=== PATIENT | female | born 1995 | race Hispanic/Latino ===

== ENCOUNTER 2019-02-25 11:20 | Emergency (ER) | payer BC ==
--- NOTE | 2019-02-25 11:36 | Emergency Department Report ---
Blank Doc - Documentation Documentation: 23-year-old female that presents with continues nosebleeds and syncopal episode today. This initial assessment/diagnostic orders/clinical plan/treatment(s) is/are subject to change based on patient's health status, clinical progression and re- assessment by fellow clinical providers in the ED. Further treatment and workup at subsequent clinical providers discretion. Patient/guardians urged not to elope from the ED as their condition may be serious if not clinically assessed and managed. Initial orders include: 1- Patient sent to [facility] for further evaluation and treatment 2- labs 3- UA 4- CT head 5- EKG
[2019-02-25 13:09] LABS: Basophils % (Auto) 0.6 % (0.0-1.8); Eosinophils # (Auto) 0.1 K/mm3 (0.0-0.4); Hematocrit 38.9 % (30.3-42.9); Lymphocytes # (Auto) 1.7 K/mm3 (1.2-5.4); Mean Corpuscular HGB Conc 33 % (30-34); Mean Corpuscular Volume 96 fl (79-97); Monocytes # (Auto) 0.4 K/mm3 (0.0-0.8); Monocytes % (Auto) 6.5 % (0.0-7.3); Platelet Count 299 K/mm3 (140-440); Red Blood Count 4.07 M/mm3 (3.65-5.03); Red Cell Distribution Width 12.4 % (13.2-15.2)
[2019-02-25 13:21] LABS: INR 1.02 (0.87-1.13)
[2019-02-25 13:22] LABS: Partial Thromboplastin Time 33.3 Sec. (24.2-36.6)
[2019-02-25 13:38] LABS: Alanine Aminotransferase 13 units/L (7-56); BUN/Creatinine Ratio 18; Blood Urea Nitrogen 11 mg/dL (7-17); Calcium 9.6 mg/dL (8.4-10.2); Hemolysis Index 6
[2019-02-25 14:22] LABS: Bilirubin,Urine NEG (Negative); Blood,Urine SM (Negative); Color,Urine Yellow (Yellow); Mucus,Urine FEW /HPF; Protein,Urine <15 mg/dL mg/dL (Negative); Urobilinogen,Urine < 2.0 mg/dL (<2.0); WBC,Urine < 1.0 /HPF (0.0-6.0)
--- NOTE | 2019-02-25 14:53 | Cat Scan Report ---
CT head/brain wo con INDICATION / CLINICAL INFORMATION: 23 years Female; syncope. TECHNIQUE: Routine CT head without contrast. All CT scans at this location are performed using CT dos e reduction for ALARA by means of automated exposure control. COMPARISON: None. FINDINGS: BRAIN / INTRACRANIAL CONTENTS: The brain demonstrate appropriate attenuation. 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 This finding. To flatten th e superior tectum on the sagittal reconstructed images. However, the ventricular system is within nor mal limits in size and configuration without evidence of hydrocephalus.. There is no CT evidence of a cute intracranial hemorrhage or significant mass effect. ORBITS: No significant abnormality of visualized orbits. SINUSES / MASTOIDS: There is mild focal opacification along the posterior right ethmoid air cells. CRANIOCERVICAL JUNCTION: No significant abnormality. ADDITIONAL FINDINGS: None. IMPRESSION: 1. 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 Otherwise, the CT of the head is unremarkable without evidence of acute intracranial process. Signer Name: Sigifredo Collazo MD Signed: 02/25/2019 2:48 PM Workstation Name: [id number]
--- NOTE | 2019-02-25 15:11 | Emergency Department Report ---
ED General Adult HPI - General Chief complaint: Syncope Stated complaint: FELL AT WORK/PASSED OUT NOSE BLEED Time Seen by Provider: 02/25/19 11:33 Source: patient Mode of arrival: Ambulatory Limitations: No Limitations - History of Present Illness Initial comments: Patient is a 23-year-old female who is presenting with pain in the mid face and cheeks for the last month. He states this is progressively worsening. Patient's had 6-7 nosebleeds this month as well. Patient states that while at work she had sudden increase of the pain in the mid face and on the roof of her mouth that caused her to feel near syncopal. She had tunnel vision and felt as though she was going to lose consciousness. Patient states she went down onto her knees after this occurred. Patient never actually lost consciousness. Patient denies any fevers chills nausea vomiting. - Related Data Previous Rx's Medication Instructions Recorded Last Taken Type Amoxicillin/Potassium Clav 1 each PO BID #14 tablet 02/25/19 Unknown Rx [Augmentin 875-125 Tablet] Fluticasone [Flonase] 1 spray NS QDAY #1 bottle 02/25/19 Unknown Rx predniSONE [Deltasone] 20 mg PO QDAY #5 tab 02/25/19 Unknown Rx Allergies Allergy/AdvReac Type Severity Reaction Status Date / Time codeine Allergy Anaphylaxis Verified 02/25/19 11:25 morphine Allergy Anaphylaxis Verified 02/25/19 11:25 ED Review of Systems ROS: Stated complaint: FELL AT WORK/PASSED OUT NOSE BLEED Other details as noted in HPI Comment: All other systems reviewed and negative ED Past Medical Hx - Past Medical History Previous Medical History?: No - Surgical History Past Surgical History?: No - Social History Smoking Status: Never Smoker Substance Use Type: None - Medications Home Medications: Home Medications Medication Instructions Recorded Confirmed Last Taken Type Amoxicillin/Potassium Clav 1 each PO BID #14 tablet 02/25/19 Unknown Rx [Augmentin 875-125 Tablet] Fluticasone [Flonase] 1 spray NS QDAY #1 bottle 02/25/19 Unknown Rx predniSONE [Deltasone] 20 mg PO QDAY #5 tab 02/25/19 Unknown Rx ED Physical Exam - General Limitations: No Limitations General appearance: alert, in no apparent distress - Head Head exam: Present: atraumatic, normocephalic - Expanded Head Exam Expanded 1 - Tenderness to palpation - Eye Eye exam: Present: normal appearance - ENT ENT exam: Present: mucous membranes moist - Neck Neck exam: Present: normal inspection - Respiratory Respiratory exam: Present: normal lung sounds bilaterally. Absent: respiratory distress - Cardiovascular Cardiovascular Exam: Present: regular rate, normal rhythm. Absent: systolic m urmur, diastolic murmur, rubs, gallop - GI/Abdominal GI/Abdominal exam: Present: soft, normal bowel sounds - Extremities Exam Extremities exam: Present: normal inspection - Back Exam Back exam: Present: normal inspection - Neurological Exam Neurological exam: Present: alert, oriented X3 - Psychiatric Psychiatric exam: Present: normal affect, normal mood - Skin Skin exam: Present: warm, dry, intact, normal color. Absent: rash ED Course Vital Signs 02/25/19 11:25 Temperature 98.6 F Pulse Rate 80 Respiratory 16 Rate Blood Pressure 133/76 O2 Sat by Pulse 96 Oximetry ED Medical Decision Making - Lab Data Result diagrams: 02/25/19 12:46 02/25/19 12:46 - Radiology Data CT head/brain wo con INDICATION / CLINICAL INFORMATION: 23 years Female; syncope. TECHNIQUE: Routine CT head without contrast. All CT scans at this location are performed using CT dose reduction for ALARA by means of automated exposure control. COMPARISON: None. FINDINGS: BRAIN / INTRACRANIAL CONTENTS: The brain demonstrate appropriate attenuation. 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 This finding. To flatten the superior tectum on the sagittal reconstructed images. However, the ventricular system is within normal limits in size and configuration without evidence of hydrocephalus.. There is no CT evidence of acute intracranial hemorrhage or significant mass effect. ORBITS: No significant abnormality of visualized orbits. SINUSES / MASTOIDS: There is mild focal opacification along the posterior right ethmoid air cells. CRANIOCERVICAL JUNCTION: No significant abnormality. ADDITIONAL FINDINGS: None. IMPRESSION: 1. 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 Otherwise, the CT of the head is unremarkable without evidence of acute intracranial process. Signer Name: Sigifredo Collazo MD Signed: 02/25/2019 2:48 PM Workstation Name: [id number] - Medical Decision Making Patient's CT does show she has some ethmoidal sinus irritation. CT cut off before the maxillary sinus films. Patient clinically is tender in this area of likely has a acute sinusitis. Patient be started on antibiotics and given this was symptomatically. Critical care attestation.: If time is entered above; I have spent that time in minutes in the direct care of this critically ill patient, excluding procedure time. ED Disposition Clinical Impression: Acute sinusitis Qualifiers: Sinusitis location: pansinusitis Recurrence: non-recurrent Qualified Code(s): J01.40 - Acute pansinusitis, unspecified Disposition: - TO HOME OR SELFCARE Is pt being admited?: No Does the pt Need Aspirin: No Condition: Stable Instructions: Sinusitis (ED) Referrals: RADHA VILLARREAL MD [Staff Physician] - 3-5 Days Time of Disposition: 15:11
[2019-02-25 15:40] VITALS: BP 112/63
== END 2019-02-25 15:40 | disposition home or self-care (01) ==
LOC: ED 11:20
DX: J01.90 Acute sinusitis, unspecified (principal)
CPT/HCPCS: 36415; 70450; 80053; 81001; 84703; 85025; 85610; 85730; 93005; 93010